=== PATIENT | female | born 1990 | race Caucasian/White ===

== ENCOUNTER 2018-10-25 19:58 | Emergency (ER) | payer OTHER ==
[2018-10-25 20:17] VITALS: BP 135/86; PULSE 78; TEMP 98.3; BMI 24.0
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
== END 2018-10-25 21:06 | disposition home or self-care (01) ==
LOC: JERFT 19:58
DX: M54.2 Cervicalgia (principal); V49.3XXA Car occupant (driver) (passenger) injured in unspecified nontraffic accident, initial encounter; Y93.89 Activity, other specified; Y92.410 Unspecified street and highway as the place of occurrence of the external cause
CPT/HCPCS: 99281-25

== ENCOUNTER 2022-01-03 17:32 | Emergency (ER) | payer OTHER ==
[2022-01-03 18:00] VITALS: BP 122/75; PULSE 98; TEMP 98.7; BMI 23.1
[2022-01-03 21:24] LABS: BASO % 0.4 % (0-2.0); EOS % 1.3 % (0-4.5); HEMOGLOBIN 13.9 GM/dL (10.7-15.3); LYMPH % 24.4 % (8-40); MCH 31.9 pg (25.7-33.7); MCHC 34.7 g/dl (32.0-36.0); MEAN CELL VOLUME 91.8 fl (80-96); MONO % 5.2 % (3.8-10.2); NEUT % 68.7 % (42.8-82.8); PLATELET COUNT 214 10^3/uL (134-434); RBC 4.36 M/mm3 (3.60-5.2); RDW 13.2 % (11.6-15.6); WHITE BLOOD COUNT 9.4 K/mm3 (4.0-10.0)
[2022-01-03 21:41] LABS: EPI CELLS >36 /uL (0-25.1); HYALINE CASTS 1 /uL (0-3.1); PH,URINE 6.5 (5.0-8.0); URINE APPEARANCE CLEAR; URINE BACTERIA 431 /uL (0-1359); URINE BILIRUBIN NEGATIVE (NEGATIVE); URINE COLOR YELLOW; URINE GLUCOSE (UA) NEGATIVE (NEGATIVE); URINE KETONE 1+ (NEGATIVE); URINE LEUK ESTERASE TRACE (NEGATIVE); URINE NITRITE NEGATIVE (NEGATIVE); URINE PROTEIN NEGATIVE (NEGATIVE); URINE RBC 6 /uL (0-23.9); URINE WBC 19 /uL (0-25.8)
[2022-01-03 21:51] LABS: ALBUMIN 3.4 g/dl (3.4-5.0); BLOOD UREA NITROGEN 8.1 mg/dL (7-18)
[2022-01-03 21:54] LABS: CREATININE 0.5 mg/dL (0.55-1.3)
[2022-01-03 21:55] LABS: BILIRUBIN,TOTAL 0.3 mg/dL (0.2-1); TOT PROT 7.6 g/dl (6.4-8.2)
== END 2022-01-03 23:19 | disposition home or self-care (01) ==
LOC: JER 17:32
DX: O20.0 Threatened abortion (principal); Z3A.12 12 weeks gestation of pregnancy
CPT/HCPCS: 36415; 76801-TC; 80053; 81003; 84702; 85025; 86850; 86900; 86901; 87086; 99284-25

== ENCOUNTER 2022-04-10 23:35 | Inpatient (IN) | payer OTHER ==
[2022-04-11] MEDS ORDERED: LACTATED RINGERS SOLUTION 1,000 ML IV SCH (01:00)
[2022-04-11 01:52] LABS: EPI CELLS 22 /uL (0-25.1); HYALINE CASTS 2 /uL (0-3.1); URINE APPEARANCE CLOUDY; URINE BACTERIA >9,000 /uL (0-1359); URINE BILIRUBIN NEGATIVE (NEGATIVE); URINE COLOR YELLOW; URINE GLUCOSE (UA) NEGATIVE (NEGATIVE); URINE KETONE NEGATIVE (NEGATIVE); URINE LEUK ESTERASE 2+ (NEGATIVE); URINE NITRITE POSITIVE (NEGATIVE); URINE PROTEIN 3+ (NEGATIVE); URINE UROBILINOGEN 0.2 mg/dL (0.2-1.0); URINE WBC 2752 /uL (0-25.8)
[2022-04-11] MEDS ORDERED: ACETAMINOPHEN INJECTION 100 ML IVPB ONE (02:13)
[2022-04-11] MEDS ORDERED: ACETAMINOPHEN 1000 MG/100 ML BAG IVPB ONE (02:25)
[2022-04-11] MEDS ORDERED: CEFTRIAXONE 2 GM in DEXTROSE 5%-WATER 100 ML IVPB ONE (02:30)
[2022-04-11 02:50] LABS: BASO % 0.3 % (0-2.0); EOS % 0.2 % (0-4.5); HEMATOCRIT 36.3 % (32.4-45.2); HEMOGLOBIN 12.4 GM/dL (10.7-15.3); LYMPH % 9.8 % (8-40); MCH 31.2 pg (25.7-33.7); MCHC 34.1 g/dl (32.0-36.0); MEAN CELL VOLUME 91.4 fl (80-96); MEAN PLT VOLUME 7.5 fl (7.5-11.1); MONO % 4.8 % (3.8-10.2); NEUT % 84.9 % (42.8-82.8); PLATELET COUNT 204 10^3/uL (134-434); RBC 3.97 M/mm3 (3.60-5.2); RDW 14.1 % (11.6-15.6); WHITE BLOOD COUNT 12.4 K/mm3 (4.0-10.0)
[2022-04-11] MEDS: SODIUM CHLORIDE 1,000 ML IV SCH (03:00)
[2022-04-11 03:01] LABS: INR 1.05 (0.83-1.09); PROTHROMBIN TIME (PATIENT) 12.1 SEC (9.7-13.0)
[2022-04-11 03:11] LABS: CALCIUM 8.9 mg/dL (8.5-10.1)
[2022-04-11 03:12] LABS: BLOOD UREA NITROGEN 5.8 mg/dL (7-18)
[2022-04-11 03:15] LABS: CREATININE 0.5 mg/dL (0.55-1.3)
[2022-04-11 03:36] VITALS: BMI 27.1
[2022-04-11] MEDS ORDERED: METOCLOPRAMIDE HCL INJECTION 10 MG/2 ML VIAL ONE (04:02)
[2022-04-11] MEDS ORDERED: METOCLOPRAMIDE HCL INJECTION 10 MG/2 ML VIAL IVPB ONE (04:45)
[2022-04-11] MEDS ORDERED: ACETAMINOPHEN 325 MG TABLET (FP) PO PRN (09:30)
[2022-04-12] MEDS ORDERED: cefTRIAXone SODIUM 1 GM VIAL ONE (01:56)
[2022-04-12] MEDS ORDERED: DEXTROSE 5%-WATER - 50 ML IVPB ONE (01:56)
[2022-04-12] MEDS: CEFTRIAXONE 1 GM in DEXTROSE 5%-WATER - 50 ML IVPB SCH (02:14)
[2022-04-12 09:06] LABS: BASO % 0.2 % (0-2.0); EOS % 1.1 % (0-4.5); HEMATOCRIT 34.5 % (32.4-45.2); HEMOGLOBIN 11.9 GM/dL (10.7-15.3); LYMPH % 21.2 % (8-40); MCH 31.8 pg (25.7-33.7); MCHC 34.5 g/dl (32.0-36.0); MEAN CELL VOLUME 92.3 fl (80-96); MEAN PLT VOLUME 7.4 fl (7.5-11.1); MONO % 5.4 % (3.8-10.2); NEUT % 72.1 % (42.8-82.8); PLATELET COUNT 192 10^3/uL (134-434); RBC 3.74 M/mm3 (3.60-5.2); RDW 13.9 % (11.6-15.6); WHITE BLOOD COUNT 7.5 K/mm3 (4.0-10.0)
[2022-04-12 09:23] LABS: CALCIUM 8.5 mg/dL (8.5-10.1)
[2022-04-12 09:24] LABS: BLOOD UREA NITROGEN 4.1 mg/dL (7-18)
[2022-04-12 09:27] LABS: CREATININE 0.4 mg/dL (0.55-1.3)
[2022-04-12] MEDS ORDERED: DOCUSATE SODIUM 100 MG CAPSULE (FP) PO PRN (11:17)
[2022-04-12] MEDS: PRENATAL VITAMINS W/ FOLIC ACID TABLET (FP) PO SCH (12:35)
[2022-04-12] MEDS: SODIUM CHLORIDE 1,000 ML IV SCH (15:43)
[2022-04-13] MEDS ORDERED: cefTRIAXone SODIUM 1 GM VIAL ONE (01:55)
[2022-04-13] MEDS ORDERED: DEXTROSE 5%-WATER - 50 ML IVPB ONE (01:55)
[2022-04-13] MEDS: CEFTRIAXONE 1 GM in DEXTROSE 5%-WATER - 50 ML IVPB SCH (01:58)
[2022-04-13] MEDS: SODIUM CHLORIDE 1,000 ML IV SCH (05:40)
[2022-04-13] MEDS: PRENATAL VITAMINS W/ FOLIC ACID TABLET (FP) PO SCH (09:24)
[2022-04-14] MEDS ORDERED: DEXTROSE 5%-WATER - 50 ML IVPB ONE (01:51)
[2022-04-14] MEDS ORDERED: cefTRIAXone SODIUM 1 GM VIAL ONE (01:51)
[2022-04-14] MEDS: CEFTRIAXONE 1 GM in DEXTROSE 5%-WATER - 50 ML IVPB SCH (02:19)
[2022-04-14] MEDS: PRENATAL VITAMINS W/ FOLIC ACID TABLET (FP) PO SCH (10:25)
[2022-04-14 12:13] VITALS: BP 100/69; PULSE 85; TEMP 98.1
== END 2022-04-14 13:00 | disposition home or self-care (01) | DRG 566 ==
LOC: JDEL 23:35 → JLDR 04-11 02:05 → J3W 04-11 10:15
PROVIDERS: ADMIT Obstetrics & Gynecology; ATTEND Obstetrics & Gynecology
DX: O23.02 Infections of kidney in pregnancy, second trimester (principal); B96.29 Other Escherichia coli [E. coli] as the cause of diseases classified elsewhere; Z3A.26 26 weeks gestation of pregnancy
CPT/HCPCS: 36415; 76775-TC; 76815-TC; 80048; 81003; 85025; 85610; 85730; 86780; 86850; 86900; 86901; 87086; 87186; C9803-CS; U0003; U0005

== ENCOUNTER 2022-07-11 20:20 | Inpatient (IN) | payer OTHER ==
[2022-07-11] MEDS ORDERED: DINOPROSTONE 10 MG VAGINAL SUPPOSITORY VG STA (21:51)
[2022-07-11] MEDS ORDERED: ELECTROLYTE-148 SOLN 1,000 ML IV SCH (22:00)
[2022-07-11 22:11] LABS: BASO % 0.6 % (0-2.0); EOS % 0.3 % (0-4.5); HEMATOCRIT 39.3 % (32.4-45.2); HEMOGLOBIN 13.3 GM/dL (10.7-15.3); LYMPH % 23.3 % (8-40); MCHC 33.8 g/dl (32.0-36.0); MEAN CELL VOLUME 88.8 fl (80-96); MEAN PLT VOLUME 8.1 fl (7.5-11.1); MONO % 4.8 % (3.8-10.2); PLATELET COUNT 188 10^3/uL (134-434); RBC 4.43 M/mm3 (3.60-5.2); RDW 15.3 % (11.6-15.6); WHITE BLOOD COUNT 6.7 K/mm3 (4.0-10.0)
[2022-07-11 22:24] LABS: INR 0.97 (0.83-1.09); PROTHROMBIN TIME (PATIENT) 11.1 SEC (9.7-13.0)
[2022-07-11 22:27] LABS: ACTIVATED PTT 32.9 SECONDS (25.2-36.5)
[2022-07-11 22:44] LABS: CALCIUM 8.4 mg/dL (8.5-10.1)
[2022-07-11 22:45] LABS: BLOOD UREA NITROGEN 8.7 mg/dL (7-18)
[2022-07-11 22:48] LABS: CREATININE 0.5 mg/dL (0.55-1.3)
[2022-07-11 23:32] LABS: HIV INTERPRETATION NEGATIVE (NEGATIVE)
[2022-07-12] VITALS: BMI 29.0
[2022-07-12] MEDS ORDERED: FENTANYL/BUPIVACAINE/NS/PF - PCEA - 50 ML DISP.SYRIN EP ONE ×4 (01:48→08:13)
[2022-07-12] MEDS ORDERED: NALOXONE HCL 0.4 MG/ML VIAL IVPUSH PRN (02:33)
[2022-07-12] MEDS ORDERED: OXYTOCIN 20 UNITS in 0.9% NS 20 UNIT/1,000 ML INFUS.BAG IV ONE (02:38)
[2022-07-12] MEDS ORDERED: FENTANYL/BUPIVACAINE/NS/PF - PCEA - 50 ML DISP.SYRIN EP SCH (02:45)
[2022-07-12] MEDS ORDERED: LIDOCAINE HCL/EPINEPHRINE/PF 20 ML VIAL ONE (08:11)
[2022-07-12] MEDS ORDERED: SODIUM BICARBONATE 8.4% 50 MEQ/50 ML VIAL ONE (09:31)
[2022-07-12] MEDS ORDERED: ePHEDrine SULFATE 50 MG/1 ML AMPULE ONE (09:32)
[2022-07-12] MEDS ORDERED: SODIUM CHLORIDE 0.9% P/F 10 ML VIAL IJ ONE (09:33)
[2022-07-12] MEDS ORDERED: CITRIC ACID/SODIUM CITRATE 30 ML UNIT-DOSE CUP PO ONE (10:00)
[2022-07-12] MEDS ORDERED: morphine SULFATE (PF) 1 MG/2 ML SYRINGE ONE (10:25)
[2022-07-12] MEDS ORDERED: ceFAZolin SODIUM 1 GM VIAL ONE (10:39)
[2022-07-12] MEDS ORDERED: METHYLERGONOVINE MALEATE 0.2 MG/1 ML AMP IM ONE (10:50)
[2022-07-12] MEDS ORDERED: OXYTOCIN 10 UNITS/ML VIAL ONE (11:03)
[2022-07-12] MEDS ORDERED: ONDANSETRON 4 MG/2 ML VIAL ONE (11:06)
[2022-07-12] MEDS ORDERED: METHYLERGONOVINE MALEATE 0.2 MG/1 ML AMP IM PRN (11:28)
[2022-07-12] MEDS ORDERED: OXYTOCIN 20 UNITS in 0.9% NS 20 UNIT/1,000 ML INFUS.BAG IV SCH (11:30)
[2022-07-12] MEDS ORDERED: IBUPROFEN 800 MG/8 ML IJ IVPB PRN (11:31)
[2022-07-12] MEDS ORDERED: ONDANSETRON 4 MG/2 ML VIAL IVPUSH PRN (11:41)
[2022-07-12 12:12] LABS: CORD HCO3 22.7 mmHg (20-29); CORD PCO2 62.1 mmHg (30-78); CORD pH 7.181 (7.14-7.44)
[2022-07-12 12:17] LABS: CORD HCO3 19.8 mmHg (20-29); CORD PCO2 48.6 mmHg (30-78); CORD pH 7.228 (7.14-7.44)
[2022-07-12] MEDS: CEFAZOLIN 1 GM in DEXTROSE 5%-WATER - 50 ML IVPB SCH (17:46)
[2022-07-12] MEDS: SIMETHICONE 80 MG TAB.CHEW (FP) PO PRN (23:22)
[2022-07-12] MEDS ORDERED: oxyCODONE HCL 5 MG TABLET PO PRN ×2 (23:28)
[2022-07-13] MEDS: CEFAZOLIN 1 GM in DEXTROSE 5%-WATER - 50 ML IVPB SCH ×3 (01:08→10:00)
[2022-07-13] MEDS: IBUPROFEN 600 MG TABLET (FP) PO PRN ×4 (05:11→19:45)
[2022-07-13] MEDS: SIMETHICONE 80 MG TAB.CHEW (FP) PO PRN ×3 (05:12→19:45)
[2022-07-13 08:38] LABS: BASO % 0.1 % (0-2.0); EOS % 0.1 % (0-4.5); HEMATOCRIT 31.3 % (32.4-45.2); HEMOGLOBIN 10.8 GM/dL (10.7-15.3); LYMPH % 11.2 % (8-40); MCH 30.7 pg (25.7-33.7); MCHC 34.4 g/dl (32.0-36.0); MEAN CELL VOLUME 89.3 fl (80-96); MEAN PLT VOLUME 7.6 fl (7.5-11.1); MONO % 6.3 % (3.8-10.2); NEUT % 82.3 % (42.8-82.8); PLATELET COUNT 146 10^3/uL (134-434); RBC 3.51 M/mm3 (3.60-5.2); RDW 15.6 % (11.6-15.6)
[2022-07-13] MEDS: ENOXAPARIN NA (PORCINE) 40 MG/0.4 ML DISP.SYRIN SQ SCH (09:53)
[2022-07-13] MEDS ORDERED: BISACODYL 10 MG SUPP.RECT RC PRN (11:28)
[2022-07-14] MEDS: SIMETHICONE 80 MG TAB.CHEW (FP) PO PRN ×3 (04:04→20:46)
[2022-07-14] MEDS: ACETAMINOPHEN 325 MG TABLET (FP) PO PRN ×2 (04:05→10:24)
[2022-07-14] MEDS: IBUPROFEN 600 MG TABLET (FP) PO PRN ×2 (08:17→20:47)
[2022-07-14] MEDS: ENOXAPARIN NA (PORCINE) 40 MG/0.4 ML DISP.SYRIN SQ SCH (10:24)
[2022-07-14] MEDS ORDERED: DOCUSATE SODIUM 100 MG CAPSULE (FP) PO PRN (10:26)
[2022-07-14 10:52] VITALS: RESP 16
[2022-07-15 08:11] LABS: BASO % 0.3 % (0-2.0); EOS % 1.5 % (0-4.5); HEMATOCRIT 29.8 % (32.4-45.2); HEMOGLOBIN 10.3 GM/dL (10.7-15.3); LYMPH % 22.4 % (8-40); MCH 30.9 pg (25.7-33.7); MCHC 34.6 g/dl (32.0-36.0); MEAN CELL VOLUME 89.2 fl (80-96); MEAN PLT VOLUME 7.2 fl (7.5-11.1); MONO % 6.1 % (3.8-10.2); NEUT % 69.7 % (42.8-82.8); PLATELET COUNT 208 10^3/uL (134-434); RBC 3.34 M/mm3 (3.60-5.2); RDW 15.4 % (11.6-15.6); WHITE BLOOD COUNT 8.1 K/mm3 (4.0-10.0)
[2022-07-15] MEDS: IBUPROFEN 600 MG TABLET (FP) PO PRN (09:51)
[2022-07-15] MEDS: ENOXAPARIN NA (PORCINE) 40 MG/0.4 ML DISP.SYRIN SQ SCH (09:51)
[2022-07-15 11:24] VITALS: BP 107/69; PULSE 77; TEMP 98.8
== END 2022-07-15 13:15 | disposition home or self-care (01) | DRG 540 ==
LOC: JLDR 20:20 → J3W 07-12 13:19
PROVIDERS: ADMIT Obstetrics & Gynecology; ATTEND Obstetrics & Gynecology
PROC: 3E0P7VZ Introduction of Hormone into Female Reproductive, Via Natural or Artificial Opening (ICD-10-PCS; 2022-07-11)
PROC: 10D00Z1 Extraction of Products of Conception, Low, Open Approach (ICD-10-PCS; principal; 2022-07-12)
PROC: 10907ZC Drainage of Amniotic Fluid, Therapeutic from Products of Conception, Via Natural or Artificial Opening (ICD-10-PCS; 2022-07-12)
DX: O24.425 Gestational diabetes mellitus in childbirth, controlled by oral hypoglycemic drugs (principal); O40.3XX0 Polyhydramnios, third trimester, not applicable or unspecified; O61.0 Failed medical induction of labor; O36.63X0 Maternal care for excessive fetal growth, third trimester, not applicable or unspecified; O32.6XX0 Maternal care for compound presentation, not applicable or unspecified; Z3A.39 39 weeks gestation of pregnancy; Z37.0 Single live birth
CPT/HCPCS: 36415; 36600; 80048; 82803; 82962; 85025; 85610; 85730; 86780; 86850; 86900; 86901; 87389; 88307-TC; C9803-CS; U0003; U0005

== ENCOUNTER 2024-04-11 20:21 | Emergency (ER) | payer OTHER ==
[2024-04-11 20:29] VITALS: BP 126/78; PULSE 72; RESP 20; TEMP 97.7; BMI 25.4
[2024-04-11] MEDS ORDERED: ACETAMINOPHEN INJECTION 100 ML IVPB ONE (21:44)
[2024-04-11] MEDS ORDERED: METOCLOPRAMIDE HCL INJECTION 10 MG/2 ML VIAL ONE (21:44)
[2024-04-11 21:53] LABS: BASO % 0.2 % (0-2.0); EOS % 3.2 % (0-4.5); HEMATOCRIT 40.3 % (32.4-45.2); LYMPH % 23.9 % (8-40); MCH 31.5 pg (25.7-33.7); MCHC 34.8 g/dl (32.0-36.0); MEAN CELL VOLUME 90.7 fl (80-96); MEAN PLT VOLUME 8.9 fl (7.5-11.1); NEUT % 68.7 % (42.8-82.8); PLATELET COUNT 230 10^3/uL (134-434); RBC 4.44 M/mm3 (3.60-5.2); RDW 13.1 % (11.6-15.6); WHITE BLOOD COUNT 7.4 K/mm3 (4.0-10.0)
[2024-04-11] MEDS: METOCLOPRAMIDE HCL INJECTION 10 MG/2 ML VIAL IVPB ONE (21:54)
[2024-04-11] MEDS: SODIUM CHLORIDE 0.9% 500 ML INFUS.BAG IV ONE (21:55)
[2024-04-11] MEDS: ACETAMINOPHEN 1000 MG/100 ML BAG IVPB ONE (21:55)
[2024-04-11 22:14] LABS: POTASSIUM 3.7 mmol/L (3.5-5.1)
[2024-04-11 22:16] LABS: CALCIUM 10.1 mg/dL (8.5-10.1)
[2024-04-11 22:17] LABS: ALBUMIN 4.4 g/dl (3.4-5.0); BLOOD UREA NITROGEN 11.9 mg/dL (7-18)
[2024-04-11 22:20] LABS: CREATININE 0.8 mg/dL (0.55-1.3)
[2024-04-11 22:21] LABS: TOT PROT 8.8 g/dl (6.4-8.2)
[2024-04-11 22:22] LABS: BILIRUBIN,TOTAL 0.4 mg/dL (0.2-1)
== END 2024-04-11 23:09 | disposition home or self-care (01) ==
LOC: JER 20:21
PROC: 3E033NZ Introduction of Analgesics, Hypnotics, Sedatives into Peripheral Vein, Percutaneous Approach (ICD-10-PCS; principal; 2024-04-11)
PROC: 3E033GC Introduction of Other Therapeutic Substance into Peripheral Vein, Percutaneous Approach (ICD-10-PCS; 2024-04-11)
DX: G44.209 Tension-type headache, unspecified, not intractable (principal); R11.0 Nausea
CPT/HCPCS: 36415; 80053; 84703; 85025; 99284-25; J0131